=== PATIENT | male | born 1955 | race Caucasian/White ===

== ENCOUNTER 2020-02-07 07:01 | Day surgery (SDC) | payer OTHER, SELFPAY ==
[~2020-02-07] VITALS: Ht 182.9 cm; Wt 111.1 kg
[2020-02-07] MEDS ORDERED: LIDOCAINE 2% 100 MG/5 ML UJET TP ONE (08:54)
[2020-02-07] MEDS ORDERED: fentaNYL citrate 0.05 MG/ML VIAL ONE (08:54)
[2020-02-07] MEDS ORDERED: fentaNYL citrate 0.05 MG/ML VIAL IVP ONE (10:05)
== END 2020-02-07 10:45 | disposition home or self-care (01) ==
LOC: MDS 07:01 → MFCC 07:02 → MDS 10:45
PROVIDERS: ATTEND Internal Medicine Gastroenterology
DX: Z12.11 Encounter for screening for malignant neoplasm of colon (principal); D12.6 Benign neoplasm of colon, unspecified; K57.30 Diverticulosis of large intestine without perforation or abscess without bleeding; Z86.010 Personal history of colon polyps; Z80.0 Family history of malignant neoplasm of digestive organs; I10 Essential (primary) hypertension; Z79.899 Other long term (current) drug therapy; Z98.890 Other specified postprocedural states; Z11.59 Encounter for screening for other viral diseases
CPT/HCPCS: 45385; J3010; U0003

== ENCOUNTER 2022-09-12 07:50 | Day surgery (SDC) | payer OTHER ==
[~2022-09-12] VITALS: Ht 182.9 cm; Wt 95.3 kg
[2022-09-12] MEDS ORDERED: LIDOCAINE 2% 100 MG/5 ML UJET TP ONE (09:31)
[2022-09-12] MEDS ORDERED: fentaNYL citrate 0.05 MG/ML VIAL ONE (09:31)
== END 2022-09-12 11:29 | disposition home or self-care (01) ==
LOC: MOR 07:50 → MMU 07:51 → MOR 11:29
PROVIDERS: ATTEND Internal Medicine Gastroenterology
DX: R19.5 Other fecal abnormalities (principal); D12.3 Benign neoplasm of transverse colon; D12.4 Benign neoplasm of descending colon; D12.5 Benign neoplasm of sigmoid colon; K57.30 Diverticulosis of large intestine without perforation or abscess without bleeding; I10 Essential (primary) hypertension; M19.90 Unspecified osteoarthritis, unspecified site; Z86.010 Personal history of colon polyps; Z80.0 Family history of malignant neoplasm of digestive organs; Z20.822 Contact with and (suspected) exposure to COVID-19; Z79.899 Other long term (current) drug therapy
CPT/HCPCS: 45385; 87426; J3010